=== PATIENT | male | born 1940 | race Caucasian/White ===

== ENCOUNTER 2017-06-03 11:16 | Inpatient (IN) | payer OTHER ==
[~2017-06-03] VITALS: Ht 172.7 cm; Wt 86.3 kg
--- NOTE | 2017-06-03 11:47 | NUR ---
SON CONCRNED W/ PT HALLUCINATING AND GOING CRAZY AT HOME. ON ASSESSMENT PT IS A+OX4, AND REPORTS FEELING LIKE HE JUST GOT DRUNK. VS WNL.
[2017-06-03 12:02] LABS: BASOPHIL % 0.3 % (0-2); PLATELET COUNT 292 x10^3mcL (130-400); RED CELL DISTRIBUTION WIDTH 14.3 % (11.5-14.5)
--- NOTE | 2017-06-03 12:25 | NUR ---
PT IN ROOM IN NO ACUTE DISTRESS WITH SON AT BEDSIDE
[2017-06-03 12:26] LABS: CALCIUM 8.8 mg/dL (8.5-10.1); CARBON DIOXIDE 28.9 mmol/L (21-32); CHLORIDE SERUM 104 mmol/L (98-107); CREATININE SERUM 1.1 mg/dL (0.7-1.3); GLUCOSE SERUM 129 mg/dL (74-106); POTASSIUM SERUM 3.9 mmol/L (3.5-5.1); SODIUM SERUM 141 mmol/L (136-145)
[2017-06-03 12:30] LABS: ALBUMIN 3.6 g/dL (3.4-5.0); ALKALINE PHOSPHATASE 95 U/L (46-116); ALT/SGPT 25 U/L (16-63); AST/SGOT 21 U/L (15-37); BILIRUBIN TOTAL 0.4 mg/dL (0.20-1.00); TOTAL PROTEIN, SERUM 7.9 g/dL (6.4-8.2)
[2017-06-03 12:31] LABS: microscopic required? NO
[2017-06-03 12:39] LABS: urine erythrocyte NEGATIVE (NEGATIVE)
[2017-06-03] MEDS ORDERED: MASON NATURAL1000 IU (13:21)
--- NOTE | 2017-06-03 13:24 | NUR ---
PT UNABLE TO COMPLETE MED REC
--- NOTE | 2017-06-03 13:46 | NUR ---
RECEIVED PT FROM ED VIA [facility], PT IS AAOX4, ABLE TO FOLLOW COMMANDS. SPEECH IS CLEAR. NO SOB NOTED. W/ PRODUCTIVE COUGH, EXPECTORATES CLEAR PHLEGM. LUNG SOUNDS DIMINISHED ON THE BASES. O2 SAT=97%, RA. DENIES CHEST PAIN/PRESSURE, NSR ON THE MONITOR. DENIES ABDOMINAL PAIN/NAUSEA/VOMITING. HAD LOOSE BM YESTERDAY. ABDOMEN IS DISTENDED AND SOFT. VOIDS. W/ LEFT ARM DRY SCABS AND DARK DISCOLORATION W/ MILD SCABBING ON RLE. W/ BLE SWELLING, RIGHT GREATER THAN THE LEFT. WEAK PEDAL PULSES. IV SITE PATENT AND INTACT. PT STATED THAT HE WAS HEARING RADIO SIGNALS/FREQUENCIES BUT NOT AT THIS TIME. SIDE RAILS UPX2. CALL LIGHT ON REACH. PRIMARY NURSE MANUEL AT BEDSIDE FOR CONTINUITY OF CARE.
--- NOTE | 2017-06-03 13:50 | NUR ---
REC FROM [facility]. PT AA/O X4, ABLE TO FOLLOW COMMANDS. BREATHING EVEN AND UNLABORED ON RA. NO RESP DISTRESS OR SOB NOTED. HAS PRODUTIVE COUGH AND EXPECTORATES CLEAR PHLEGM. LUNGS SOUNDS DIM AT BASES. 02 SAT AT 97% ON RA. DENIES ANY CHEST PAIN OR PRESSURE. NSR ON MONITOR. VOIDS FREELY. LEFT ARM DRY SCABS AND DARK DISCOLORATION WITH MILD SCABBING RLE. WEAK PEDAL PULSES. IV TO IV TO THE RAC INTACT AND PATENT. CALL LIGHT IN REACH. BED IN LOW POSITION, X2 SIDE RAIL UP. WILL CONTINUE PLAN OF CARE.
[2017-06-03 13:56] LABS: MAGNESIUM 1.8 mg/dL (1.8-2.4); PHOSPHOROUS 2.9 mg/dL (2.5-4.9)
[2017-06-03 13:57] LABS: CHOLESTEROL/HDL RATIO 4.7
[2017-06-03 14:00] VITALS: BP 138/68
[2017-06-03 14:03] VITALS: Ht 172.7 cm; Wt 86.3 kg
[2017-06-03 14:13] LABS: T3 TOTAL 0.9 ng/mL
[2017-06-03 14:28] VITALS: BP 138/68
[2017-06-03 14:37] LABS: FREE T4 0.94 ng/dL (0.76-1.46); FREE THYROXINE INDEX 2.1 ug/dL (1.4-4.5); T4(THYROXINE) 5.9 ug/dL (4.7-13.3)
[2017-06-03] MEDS ORDERED: FUROSEMIDE40 MG PO (15:05)
[2017-06-03] MEDS ORDERED: CARVEDILOL12.5 M1 PO (15:06)
[2017-06-03] MEDS ORDERED: AMARYL2 MG PO (15:06)
[2017-06-03] MEDS ORDERED: LIPITOR40 MG PO (15:07)
[2017-06-03] MEDS ORDERED: OLANZAPINE5 M2 PO (15:07)
[2017-06-03] MEDS ORDERED: TAMSULOSIN HYD0.4 M1 PO (15:08)
[2017-06-03] MEDS ORDERED: GOOD SENSE ASP325 MG PO (15:08)
[2017-06-03] MEDS ORDERED: AMLODIPINE BESY10 M2 PO (15:09)
[2017-06-03] MEDS ORDERED: METOPROLOL TART25 M1 PO (15:10)
[2017-06-03] MEDS ORDERED: CLOPIDOGREL75 M1 PO (15:10)
[2017-06-03] MEDS ORDERED: POTASSIUM CHLO10 MEQ PO (15:11)
[2017-06-03] MEDS ORDERED: ENALAPRIL MALEA10 MG PO (15:11)
[2017-06-03 17:53] VITALS: BP 131/67
--- NOTE | 2017-06-03 18:51 | NUR ---
PT LAYING IN BED WATCHNG TV. TOLERATED 100% OF HIS DINNER. DENIES ANY SOB OR DISCOMFORT AND NO RESP DISTRESS NOTED. DENIES ANY PAIN AT THIS TIME. IV TO THE RAC INTACT AND PATENT. VS STABLE. CALL LIGHT IN REACH .BED IN LOW POSITION. WILL ENDORSE PT TO INCOMING RN.
--- NOTE | 2017-06-03 20:18 | NUR ---
PT CURRENTLY RESTING IN BED, NO ACUTE DISTRESS. A/O X4. TELE #7 SHOWING SINUS RHYTHM, DENIES CHEST PAIN. PULSES PALPABLE IN ALL EXTREMITIES, TRACE EDEMA NOTED TO BLE. LUNG SOUNDS DIMINISHED IN BILATERAL BASES, DENIES SOB. BOWEL SOUNDS ACTIVE, LAST BM 06/02/17, PT REPORTS LOOSE STOOLS, ABD DISTENDED/SOFT. VOIDING WELL. MILD GENERALIZED WEAKNESS NOTED. RLE DARK DISCOLORATION AND SCABS NAHUM, LUE DRY SCABS NAHUM. DENIES PAIN AT THIS TIME. IV PATENT AND INTACT. BED IN LOWEST POSITION, SIDE RAILS UP X2, SCDS IN PLACE, CALL LIGHT WITHIN REACH. WILL CONTINUE TO MONITOR.
[2017-06-03 21:40] VITALS: BP 142/55
--- NOTE | 2017-06-04 02:05 | NUR ---
PT CURRENTLY RESTING IN BED, NO ACUTE DISTRESS. BED IN LOWEST POSITION, SIDE RAILS UP X2, CALL LIGHT WITHIN REACH. WILL CONTINUE TO MONITOR.
[2017-06-04 04:01] LABS: IRON 51 ug/dL (65-170); TOTAL IRON BINDING CAPACITY 284 ug/dL (250-450)
--- NOTE | 2017-06-04 04:50 | NUR ---
PT BECAME CONFUSED AND PULLED OUT IV, NEW IV STARTED IN RFA, PT TOLERATED PROCEDURE WELL. BED IN LOWEST POSITION, SIDE RAILS UP X2, CALL LIGHT WITHIN REACH. WILL CONTINUE TO MONITOR.
[2017-06-04 05:32] VITALS: BP 135/55
--- NOTE | 2017-06-04 05:55 | NUR ---
PT SLEPT PERIODICALLY THROUGHOUT NIGHT, NO ACUTE DISTRESS. ALL NEEDS MET AND ATTENDED TO. PT BECAME FORGETFUL/CONFUSED AT TIMES. IV PATENT AND INTACT. BED IN LOWEST POSITION, SIDE RAILS UP X2, CALL LIGHT WITHIN REACH. WILL ENDORSE CARE TO ONCOMING NURSE.
[2017-06-04 06:30] LABS: CALCIUM 8.5 mg/dL (8.5-10.1); CARBON DIOXIDE 26.1 mmol/L (21-32); CHLORIDE SERUM 106 mmol/L (98-107); CREATININE SERUM 0.9 mg/dL (0.7-1.3); GLUCOSE SERUM 151 mg/dL (74-106); MAGNESIUM 1.8 mg/dL (1.8-2.4); PHOSPHOROUS 3.1 mg/dL (2.5-4.9); POTASSIUM SERUM 3.3 mmol/L (3.5-5.1); SODIUM SERUM 141 mmol/L (136-145)
[2017-06-04 06:54] LABS: BASOPHIL % 0.2 % (0-2); PLATELET COUNT 253 x10^3mcL (130-400); RED CELL DISTRIBUTION WIDTH 14.2 % (11.5-14.5)
--- NOTE | 2017-06-04 07:25 | NUR ---
PT WAS ENDORSE TO ME THIS MORNING. AA/O X3 FORGETFUL AT TIME. VS STABLE. BREATHING EVEN AND UNLABORED ON RA. DENIES ANY SOB/ OR PAIN AT THIS TIME. NO RESP DISTRESS NOTED. IV TO THE RFA INTACT AND PATENT. CALL LIGHT IN REACH. BED IN LOW [id number] BY NURSE STATION. WILL CONTINUE PLAN OF CARE.
[2017-06-04 08:15] LABS: RED BLOOD CELLS 3.88 M/mm3 (4.52-5.90)
[2017-06-04 09:30] VITALS: BP 129/56
[2017-06-04 11:16] VITALS: BP 129/56
--- NOTE | 2017-06-04 12:44 | NUR ---
PT IS SITTING UP AT BEDSIDE. HAVING HIS LUNCH AT THIS TIME. VS STABLE. DENIES ANY CHEST PAIN/ PRESSURE, PAIN OR DISCOMFORT AT THIS TIME. BREATHING EVEN AND UNLABORED ON RA. NO RESP DISTRESS OR SOB NOTED. CALL LIGHT IN REACH. BED IN LOW POSITION, BED ALARM ON.
--- NOTE | 2017-06-04 13:56 | NUR ---
PT SON KENNETH READ, CALLED WITH PT PRIMARY CARE PHYSICIAN # [phone].
--- NOTE | 2017-06-04 14:44 | NUR ---
ECHO COMPLETED,PT CONFUSED,DR ROGERS HERE TO SEE PT,ALL BED RAILS UP
[2017-06-04 15:16] VITALS: BP 105/51
--- NOTE | 2017-06-04 18:37 | NUR ---
PT IS LAYING IN BED RESTING. VS STABLE, NO ACUTE CHANGES AT THIS TIME. CALM AND COOPERATIVE. BREATHING EVEN AND UNLABORED NO RESP DISTRESS OR SOB NOTED. CALL LIGHT IN REACH. BED IN LOW POSITION, BED ALARM ON. WILL ENDORSE TO INCOMING RN.
[2017-06-04 18:50] VITALS: BP 103/45
--- NOTE | 2017-06-04 19:58 | NUR ---
PT CURRENTLY RESTING IN BED, NO ACUTE DISTRESS. A/O X3, CONFUSED/FORGETFUL AT TIMES. PT PREVIOUSLY EXPERIENCING AUDITORY HALLUCINATIONS. TELE #7 SHOWING SINUS RHYTHM, DENIES CHEST PAIN. PULSES PALPABLE IN ALL EXTREMITIES, TRACE EDEMA NOTED TO BLE. LUNG SOUNDS DIMINISHED IN BILATERAL BASES, DENIES SOB. BOWEL SOUNDS ACTIVE, LAST BM 06/02/17. VOIDING WELL. MILD GENERALIZED WEAKNESS NOTED. RLE DRY SCABS AND DISCOLORATION PALEONTOLOGICAL HELPER, LUE DRY SCABS PALEONTOLOGICAL HELPER. DENIES PAIN AT THIS TIME. IV PATENT AND INTACT. BED IN LOWEST POSITION, SIDE RAILS UP X2, SCDS IN PLACE, CALL LIGHT WITHIN REACH. WILL CONTINUE TO MONITOR.
[2017-06-04 21:48] VITALS: BP 122/42
--- NOTE | 2017-06-05 01:34 | NUR ---
PT CURRENTLY RESTING IN BED, NO ACUTE DISTRESS. WILL CONTINUE TO MONITOR.
--- NOTE | 2017-06-05 05:43 | NUR ---
PT SLEPT PERIODICALLY THROUGHOUT NIGHT, NO ACUTE DISTRESS. ALL NEEDS MET AND ATTENDED TO. NO SIGNIFICANT CHANGES. IV PATENT AND INTACT. BED IN LOWEST POSITION, SIDE RAILS UP X2, SCDS IN PLACE, CALL LIGHT WITHIN REACH. WILL ENDORSE CARE TO ONCOMING NURSE
[2017-06-05 06:31] LABS: BASOPHIL % 0.3 % (0-2); PLATELET COUNT 258 x10^3mcL (130-400); RED CELL DISTRIBUTION WIDTH 14.4 % (11.5-14.5)
[2017-06-05 06:35] VITALS: BP 102/38
[2017-06-05 06:58] LABS: CALCIUM 8.6 mg/dL (8.5-10.1); CARBON DIOXIDE 25.7 mmol/L (21-32); CHLORIDE SERUM 110 mmol/L (98-107); CREATININE SERUM 0.9 mg/dL (0.7-1.3); GLUCOSE SERUM 104 mg/dL (74-106); PHOSPHOROUS 3.7 mg/dL (2.5-4.9); POTASSIUM SERUM 3.6 mmol/L (3.5-5.1); SODIUM SERUM 144 mmol/L (136-145)
--- NOTE | 2017-06-05 07:40 | NUR ---
RECEIVED PT LAYING IN BED ASLEEP. NO APPARENT SIGNS OF ACUTE DISTRESS NOTED. RESPIRATIONS EVEN AND UNLABORED. IV APPEARS PATENT AND INFUSING WELL. CALL LIGHT WITHIN REACH. WILL CONTINUE TO MONITOR
--- NOTE | 2017-06-05 08:30 | NUR ---
AM ROUNDS DONE. PER DR. DELANEY, PT WILL STAY FOR CONTINUED MONITORING AND IV ABX. PT AWAKE AND ALERT, AND AGREES TO PLAN OF CARE. WILL CONTINUE TO MONITOR
[2017-06-05 10:01] VITALS: BP 129/56
--- NOTE | 2017-06-05 13:46 | NUR ---
PT RESTING IN BED. AMBULATED AROUND THE UNIT WITHOUT ANY APPARENT DIFFICULTIES. CALL LIGHT WITHIN REACH. BED IN LOWEST POSITION. WILL CONTINUE TO MONITOR
[2017-06-05 14:12] VITALS: BP 124/53
--- NOTE | 2017-06-05 16:50 | NUR ---
PT RESTING IN BED SOCIALIZING WITH CONSTRUCTION ECONOMIST, TALKING ABOUT SPIRITUALITY. VERY PLEASANT AND CALM WHEN ENGAGED. DENIES PAIN OR DISCOMFORT AT THIS TIME. CALL LIGHT WITHIN REACH. BED IN LOWEST POSITION. WILL CONTINUE TO MONITOR
[2017-06-05 17:33] VITALS: BP 112/54
--- NOTE | 2017-06-05 20:00 | NUR ---
PT A/A/O X3. DENIES DIZZINESS AND HEADACHE. BREATH SOUNDS DIMINISHED LEFT BASE. BREATHING EVEN AND UNLABORED ON ROOM AIR. DENIES CHEST PAIN AND PRESSURE. BOWEL SOUNDS ACTIVE. NO C/O N/V AND ABD PAIN. SCATTERED DRY SCAB NOTED ON BUE. AND REDNESS WITH SCATTERED DRY SCAB NOTED ON RLE. TRACE EDEMA NOTED ON BLE. IV INTACT ON THE RIGHT FOREARM INFUSING WITH NS AT 90 ML/HR. MADE PT COMFORTABLE. PLACED CALL LIGHT WITH IN REACH. WILL CONTINUE TO MONITOR.
[2017-06-05 21:54] VITALS: BP 115/49
--- NOTE | 2017-06-05 22:07 | NUR ---
PT TAKEN OF AND TURNED OFF C PAP MACHINE, STATING "I DONT NEED MY C PAP RIGHT NOW.". RT AWARE. WILL CONTINUE TO MONITOR.
--- NOTE | 2017-06-05 23:31 | NUR ---
PT PULLED IV. PT STATED "I WANT TO BE FREE TO WANDER WITH NO POLE. I DONT WANT TO STAY IN THE ROOM BECAUSE THERE IS TWO SNAKES A WANDERING.". DR. GALLEGOS NOTIFIED. PT MOVED TO 246-B CLOSER TO THE NURSES STATION. WILL CONTINUE TO MONITOR.
--- NOTE | 2017-06-06 00:38 | NUR ---
PT AGREED FOR A NEW IV LINE TO BE PUT ON HIM. NEW IV NOW ON THE LEFT HAND. PT TOLERATED IT WELL. WILL CONTINUE TO MONITOR.
[2017-06-06 06:56] VITALS: BP 157/67
--- NOTE | 2017-06-06 07:30 | NUR ---
RECEIVED PT SITTING ON CHAIR NEAR ROOM DOOR. A/A/OX3 FORGETFUL AND CONFUSED AT TIMES. DENIES ANY ARIAS, OR HALLUCINATIONS AT THIS TIME. RESP EVEN AND UNLABORED WITH CLEAR BS BILAT. DENIES ANY SOB/CP/PRESSURE AT THIS TIME. NSR ON TELE. NOTED WITH TRACE EDEMA TO BLE, GREATER TO RT WITH REDNESS DISCOLORATION. ABD SOFT, DISTENDED, NONTENDER WITH ACTIVE BS X4. DENIES ANY N/V AT THIS TIME. VOIDING FREELY. NOTED WITH DRY SCABS TO JOSH NAHUM.
[2017-06-06 07:57] LABS: BASOPHIL % 0.1 % (0-2); PLATELET COUNT 357 x10^3mcL (130-400); RED CELL DISTRIBUTION WIDTH 14.4 % (11.5-14.5)
[2017-06-06 08:24] LABS: CALCIUM 9.3 mg/dL (8.5-10.1); CARBON DIOXIDE 27.7 mmol/L (21-32); CHLORIDE SERUM 103 mmol/L (98-107); GLUCOSE SERUM 145 mg/dL (74-106); PHOSPHOROUS 3.3 mg/dL (2.5-4.9); POTASSIUM SERUM 3.7 mmol/L (3.5-5.1); SODIUM SERUM 142 mmol/L (136-145)
[2017-06-06 09:31] VITALS: BP 135/63
[2017-06-06 11:30] VITALS: BP 135/64
[2017-06-06] MEDS ORDERED: LEVAQUIN750 MG PO (11:37)
[2017-06-06] MEDS ORDERED: CLEOCIN HCL300 MG PO (11:37)
[2017-06-06] MEDS ORDERED: LAC PO (11:38)
[2017-06-06] MEDS ORDERED: METFORMIN HCL1000 MG PO (12:10)
[2017-06-06] MEDS ORDERED: JANUMET PO (12:10)
[2017-06-06] MEDS ORDERED: GLIMEPIRIDE1 M1 PO (12:11)
[2017-06-06] MEDS ORDERED: AMARYL2 MG PO (12:17)
[2017-06-06] MEDS ORDERED: OLANZAPINE5 M2 PO (12:32)
[2017-06-06 12:54] VITALS: BP 135/64
--- NOTE | 2017-06-06 14:50 | NUR ---
PT'S SON AT BEDSIDE VERBALIZED CONCERN OVER PT'S D/C PLAN SINCE PT IS CONFUSED AT THIS TIME. DR. WATERS PAGED AND IS TO COME SPEAK WITH FAMILY. WILL CONT TO MONITOR.
--- NOTE | 2017-06-06 15:40 | NUR ---
PT/SON PROVIDED WITH D/C HOME INSTRUCTIONS. GIVEN MEDICATION/PRESCRIPTION AND FOOD/DRUG INTERACTION SHEET TEACHING. MADE AWARE OF F/U APPT WITH PCP. NOTIFIED THAT MD HAS ORDER HH SERVICES FOR PT THAT WILL BE ARRANGED BY CASE MANAGEMENT AND THEY WILL BE CONTACTED WITH ARRANGEMENTS, PROVIDED WITH CASE MANAGEMENT CONTACT NUMBER IN CASE THEY HAVE ANY QUESTIONS. PT/SON VERBALIZED UNDERSTANDING OF INSTRUCTIONS. TELE AND IV D/C'D CATHER INTACT. PT TRANSPORTED TO [facility] WITH ALL PERSONAL BELONGINGS IN HAND FREE OF ANY APPARENT DISTRESS.
== END 2017-06-06 15:42 | disposition home health service (06) | DRG 177 ==
LOC: ED 11:16 → DU 12:47
PROVIDERS: Emergency Medicine; Student in an Organized Health Care Education/Training Program; ADMIT Family Medicine
DX: J69.0 Pneumonitis due to inhalation of food and vomit (principal); G93.41 Metabolic encephalopathy; J96.00 Acute respiratory failure, unspecified whether with hypoxia or hypercapnia; D68.69 Other thrombophilia; R44.0 Auditory hallucinations; F02.81 Dementia in other diseases classified elsewhere, unspecified severity, with behavioral disturbance; I42.0 Dilated cardiomyopathy; G31.9 Degenerative disease of nervous system, unspecified; I11.0 Hypertensive heart disease with heart failure; I25.10 Atherosclerotic heart disease of native coronary artery without angina pectoris; E11.65 Type 2 diabetes mellitus with hyperglycemia; E11.51 Type 2 diabetes mellitus with diabetic peripheral angiopathy without gangrene; N40.0 Benign prostatic hyperplasia without lower urinary tract symptoms; D64.9 Anemia, unspecified; E78.5 Hyperlipidemia, unspecified; Z68.29 Body mass index [BMI] 29.0-29.9, adult; Z95.2 Presence of prosthetic heart valve; Z95.5 Presence of coronary angioplasty implant and graft; Z87.891 Personal history of nicotine dependence; Z91.83 Wandering in diseases classified elsewhere
CPT/HCPCS: 36600; 82962; 83880; 84439; J0696; J1956; J3490; J7030; J7620; Q0092

== ENCOUNTER 2017-06-28 05:15 | Emergency (ER) | payer OTHER ==
[~2017-06-28] VITALS: Ht 172.7 cm; Wt 86.2 kg
[~2017-06-28 05:15] MED LIST: AMARYL2 MG PO; AMLODIPINE BESY10 M2 PO; CARVEDILOL12.5 M1 PO; CLEOCIN HCL300 MG PO; CLOPIDOGREL75 M1 PO; ENALAPRIL MALEA10 MG PO; FUROSEMIDE40 MG PO; GLIMEPIRIDE1 M1 PO; GOOD SENSE ASP325 MG PO; JANUMET PO; LAC PO; LEVAQUIN750 MG PO; LIPITOR40 MG PO; MASON NATURAL1000 IU; METFORMIN HCL1000 MG PO; METOPROLOL TART25 M1 PO; OLANZAPINE5 M2 PO; POTASSIUM CHLO10 MEQ PO; TAMSULOSIN HYD0.4 M1 PO
[2017-06-28 05:40] VITALS: Ht 172.7 cm; Wt 86.2 kg
[2017-06-28 07:59] VITALS: BP 135/72
[2017-06-28 08:14] LABS: BASOPHIL % 0.1 % (0-2); PLATELET COUNT 264 x10^3mcL (130-400); RED CELL DISTRIBUTION WIDTH 14.9 % (11.5-14.5)
[2017-06-28 08:32] LABS: CALCIUM 8.9 mg/dL (8.5-10.1); CARBON DIOXIDE 26.4 mmol/L (21-32); CHLORIDE SERUM 104 mmol/L (98-107); CREATININE SERUM 1.2 mg/dL (0.7-1.3); GLUCOSE SERUM 147 mg/dL (74-106); POTASSIUM SERUM 3.6 mmol/L (3.5-5.1); SODIUM SERUM 143 mmol/L (136-145)
[2017-06-28 08:42] LABS: UA SPECIFIC GRAVITY >=1.030 (1.005-1.035); microscopic required? YES; urine erythrocyte NEGATIVE (NEGATIVE)
[2017-06-28 08:43] LABS: ALBUMIN 3.8 g/dL (3.4-5.0); ALKALINE PHOSPHATASE 81 U/L (46-116); ALT/SGPT 25 U/L (16-63); AST/SGOT 26 U/L (15-37); TOTAL PROTEIN, SERUM 7.7 g/dL (6.4-8.2)
== END 2017-06-28 09:39 | disposition home or self-care (01) ==
LOC: ED 05:15
PROVIDERS: Emergency Medicine
DX: S50.312A Abrasion of left elbow, initial encounter (principal); S60.312A Abrasion of left thumb, initial encounter; E78.00 Pure hypercholesterolemia, unspecified; F03.90 Unspecified dementia, unspecified severity, without behavioral disturbance, psychotic disturbance, mood disturbance, and anxiety; I10 Essential (primary) hypertension; E11.9 Type 2 diabetes mellitus without complications; X58.XXXA Exposure to other specified factors, initial encounter; Y93.89 Activity, other specified; Y92.89 Other specified places as the place of occurrence of the external cause; Y99.8 Other external cause status
CPT/HCPCS: 36415; 83880; 87804; 90715; Q0092

== ENCOUNTER 2018-10-08 12:28 | Emergency (ER) | payer OTHER ==
[~2018-10-08] VITALS: Ht 172.7 cm; Wt 89.4 kg
[2018-10-08 12:32] VITALS: Ht 172.7 cm; Wt 89.4 kg
[2018-10-08 14:56] LABS: BASOPHIL % 0.3 % (0-2); PLATELET COUNT 274 x10^3mcL (130-400); RED CELL DISTRIBUTION WIDTH 14.1 % (11.5-14.5)
[2018-10-08 15:08] LABS: CALCIUM 9.2 mg/dL (8.5-10.1); CARBON DIOXIDE 27.7 mmol/L (21-32); CHLORIDE SERUM 103 mmol/L (98-107); CREATININE SERUM 1.1 mg/dL (0.7-1.3); GLUCOSE SERUM 134 mg/dL (74-106); POTASSIUM SERUM 4.2 mmol/L (3.5-5.1); SODIUM SERUM 138 mmol/L (136-145)
[2018-10-08 15:14] LABS: ALBUMIN 3.9 g/dL (3.4-5.0); ALKALINE PHOSPHATASE 83 U/L (46-116); ALT/SGPT 25 U/L (16-63); AST/SGOT 16 U/L (15-37); BILIRUBIN TOTAL 0.54 mg/dL (0.20-1.00); CHOLESTEROL 189 mg/dL (<200); HDL CHOLESTEROL 38 mg/dL (40-60); TOTAL PROTEIN, SERUM 7.8 g/dL (6.4-8.2)
[2018-10-08 15:15] LABS: microscopic required? NO
[2018-10-08 15:25] LABS: urine erythrocyte NEGATIVE (NEGATIVE)
[2018-10-08 16:41] VITALS: BP 120/62
== END 2018-10-08 16:41 | disposition home or self-care (01) ==
LOC: ED 12:28
PROVIDERS: Emergency Medicine
DX: S20.411A Abrasion of right back wall of thorax, initial encounter (principal); F03.90 Unspecified dementia, unspecified severity, without behavioral disturbance, psychotic disturbance, mood disturbance, and anxiety; R60.0 Localized edema; I10 Essential (primary) hypertension; E11.9 Type 2 diabetes mellitus without complications; E78.00 Pure hypercholesterolemia, unspecified; Z98.890 Other specified postprocedural states; X58.XXXA Exposure to other specified factors, initial encounter; Y93.89 Activity, other specified; Y92.89 Other specified places as the place of occurrence of the external cause; Y99.8 Other external cause status
CPT/HCPCS: 36415; 82962; 90715